=== PATIENT | female | born 1945 | race American Indian/Alaskan Native ===

== ENCOUNTER → 2017-08-11 08:08 | Outpatient (CLI) | payer OTHER ==
[~2017-08-11 08:08] MED LIST: CELEBREX50 MG PO; FLONASE16 GM NS; NABUMETONE750 MG PO; SIMVASTATIN20 MG PO; ZYRTEC10 MG PO
== END | disposition home or self-care (01) ==
LOC: LAB 08:08
DX: E27.1 Primary adrenocortical insufficiency (principal); E27.49 Other adrenocortical insufficiency; I10 Essential (primary) hypertension; E03.8 Other specified hypothyroidism; E78.1 Pure hyperglyceridemia; K59.09 Other constipation; Z12.11 Encounter for screening for malignant neoplasm of colon; Z72.9 Problem related to lifestyle, unspecified; D35.2 Benign neoplasm of pituitary gland

== ENCOUNTER 2017-08-11 08:10 | Outpatient (CLI) | payer OTHER | END 2017-08-11 08:19 | disposition home or self-care (01) | LOC: MAMO-SONO 08:10 | DX: Z12.31 Encounter for screening mammogram for malignant neoplasm of breast (principal); Z87.898 Personal history of other specified conditions; Z12.39 Encounter for other screening for malignant neoplasm of breast ==

== ENCOUNTER 2018-08-28 07:55 | Outpatient (CLI) | payer OTHER | END 2018-08-28 08:11 | disposition home or self-care (01) | LOC: LAB 07:55 | DX: E78.1 Pure hyperglyceridemia (principal); E78.00 Pure hypercholesterolemia, unspecified ==

== ENCOUNTER 2018-10-13 11:10 | Inpatient (IN) | payer OTHER ==
[~2018-10-13] VITALS: Ht 152.4 cm; Wt 5.0 kg
--- NOTE | 2018-10-13 11:44 | NUR ---
PTE REFIERE DDIARREAS Y DOLOR ABDOMINAL SE JEANETTE S/V YS EUBIAC EN AREA DE OBSERVACION
--- NOTE | 2018-10-13 13:01 | NUR ---
PACIENTE ALERTA Y ORIENTADA EVALUADA POR EL SE ORIENTA A PACIENTE SOBRE TRATAMIENTO MEDICO SE EXTRAEN MUESTRAS DESANGRE Y SE ADMINSITRAN MEDICAMENTOS MARTIN ORDEN MEDICA BAJO MEDIDAS ASEPTICAS
--- NOTE | 2018-10-13 15:12 | NUR ---
SE RECIBE PTE EN AMALIA CON BARANDAS ELEVADAS, AREA DE VENOPUNCION SE ENCUENTRA PATENTE ISRRAEL DE EDEMA Y ENROJECIMIENTO CON IV FLUID PATENTE. PTE PEND A CONSULTA DRA. REHMAN.
[2018-10-15] MEDS ORDERED: B-COMPLEX PLUS1 EACH PO (10:37)
[2018-10-15] MEDS ORDERED: AMLODIPINE BESYL5 MG PO (10:37)
[2018-10-15] MEDS ORDERED: VITAMIN D35000 UNIT PO (10:38)
[2018-10-15] MEDS ORDERED: LOSARTAN-HCTZ1 EAC2 PO (10:38)
[2018-10-18] MEDS ORDERED: IPRATROPIU0.2 MG/1 M IH (14:49)
[2018-10-18] MEDS ORDERED: HYDROCODONE-CH115 ML PO (14:50)
[2018-10-18] MEDS ORDERED: XOPENEX0.63 MG/3 IH (14:50)
[2018-10-18] MEDS ORDERED: FAMOTIDINE20 MG PO (14:51)
[2018-10-18] MEDS ORDERED: MUCINEX600 MG PO (14:51)
[2018-10-18] MEDS ORDERED: MULTIVITAMINS1 EAC1 PO (14:52)
[2018-10-18] MEDS ORDERED: Intestinex CAP PO (14:52)
[2018-10-18] MEDS ORDERED: PREDNISONE10 MG PO (14:52)
== END 2018-10-18 17:41 | disposition home or self-care (01) | DRG 194 ==
LOC: ER 11:10 → SURH 17:58 → MEDJ 10-16 15:26
PROVIDERS: ADMIT Internal Medicine Cardiovascular Disease
PROC: 8E0ZXY6 Isolation (ICD-10-PCS; principal; 2018-10-13)
PROC: 4A033R1 Measurement of Arterial Saturation, Peripheral, Percutaneous Approach (ICD-10-PCS; 2018-10-13)
PROC: 3E0F7GC Introduction of Other Therapeutic Substance into Respiratory Tract, Via Natural or Artificial Opening (ICD-10-PCS; 2018-10-13)
PROC: BB24ZZZ Computerized Tomography (CT Scan) of Bilateral Lungs (ICD-10-PCS; 2018-10-13)
PROC: B246ZZZ Ultrasonography of Right and Left Heart (ICD-10-PCS; 2018-10-14)
DX: J16.8 Pneumonia due to other specified infectious organisms (principal); J90 Pleural effusion, not elsewhere classified; J98.11 Atelectasis; K52.89 Other specified noninfective gastroenteritis and colitis

== ENCOUNTER 2018-11-27 07:43 | Outpatient (CLI) | payer OTHER ==
[~2018-11-27 07:43] MED LIST changes: +AMLODIPINE BESYL5 MG PO; +B-COMPLEX PLUS1 EACH PO; +FAMOTIDINE20 MG PO; +HYDROCODONE-CH115 ML PO; +IPRATROPIU0.2 MG/1 M IH; +Intestinex CAP PO; +LOSARTAN-HCTZ1 EAC2 PO; +MUCINEX600 MG PO; +MULTIVITAMINS1 EAC1 PO; +PREDNISONE10 MG PO; +VITAMIN D35000 UNIT PO; +XOPENEX0.63 MG/3 IH
== END 2018-11-27 11:30 | disposition home or self-care (01) ==
LOC: LAB 07:43
DX: N39.0 Urinary tract infection, site not specified (principal); Z11.9 Encounter for screening for infectious and parasitic diseases, unspecified; E78.00 Pure hypercholesterolemia, unspecified; K85.00 Idiopathic acute pancreatitis without necrosis or infection; E03.8 Other specified hypothyroidism; R19.8 Other specified symptoms and signs involving the digestive system and abdomen; I10 Essential (primary) hypertension

== ENCOUNTER 2019-01-09 08:44 | Outpatient (CLI) | payer OTHER ==
[~2019-01-09] VITALS: Ht 165.1 cm; Wt 70.8 kg
== END 2019-01-09 09:00 | disposition home or self-care (01) ==
LOC: OFIC 805 08:44
DX: J31.0 Chronic rhinitis (principal); H90.3 Sensorineural hearing loss, bilateral; R49.9 Unspecified voice and resonance disorder; J04.0 Acute laryngitis; R05 Cough

== ENCOUNTER 2019-02-01 08:53 | Outpatient (CLI) | payer OTHER | END 2019-02-01 08:57 | disposition home or self-care (01) | LOC: SONOGRAMA 08:53 | DX: R10.84 Generalized abdominal pain (principal) ==

== ENCOUNTER 2019-04-12 07:51 | Outpatient (CLI) | payer OTHER | END 2019-04-12 07:52 | disposition home or self-care (01) | LOC: RAD 07:51 | DX: J98.11 Atelectasis (principal) ==

== ENCOUNTER → 2019-05-29 08:02 | Outpatient (CLI) | payer OTHER | END | disposition home or self-care (01) | LOC: LAB 08:02 | DX: E78.1 Pure hyperglyceridemia (principal); Z11.8 Encounter for screening for other infectious and parasitic diseases; E78.00 Pure hypercholesterolemia, unspecified ==

== ENCOUNTER 2019-07-31 08:02 | Outpatient (CLI) | payer OTHER | END 2019-07-31 08:13 | disposition home or self-care (01) | LOC: LAB 08:02 | DX: D68.8 Other specified coagulation defects (principal); H25.011 Cortical age-related cataract, right eye; Z98.41 Cataract extraction status, right eye ==

== ENCOUNTER → 2019-09-18 07:17 | Outpatient (CLI) | payer OTHER | END | disposition home or self-care (01) | LOC: LAB 07:17 | DX: E78.1 Pure hyperglyceridemia (principal); E11.9 Type 2 diabetes mellitus without complications; E03.8 Other specified hypothyroidism; I10 Essential (primary) hypertension ==

== ENCOUNTER 2019-09-26 10:06 | Outpatient (CLI) | payer OTHER | END 2019-09-26 11:20 | disposition home or self-care (01) | LOC: NUCLEAR 10:06 | DX: M85.89 Other specified disorders of bone density and structure, multiple sites (principal) ==

== ENCOUNTER → 2020-06-03 08:14 | Outpatient (CLI) | payer OTHER | END | disposition home or self-care (01) | LOC: LAB 08:14 | PROVIDERS: ATTEND Internal Medicine Cardiovascular Disease | DX: Z20.828 Contact with and (suspected) exposure to other viral communicable diseases (principal); I10 Essential (primary) hypertension; J18.0 Bronchopneumonia, unspecified organism; R07.89 Other chest pain ==

== ENCOUNTER 2020-06-03 09:24 | Outpatient (CLI) | payer OTHER | END 2020-06-03 10:33 | disposition home or self-care (01) | LOC: MAMO-SONO 09:24 | PROVIDERS: ATTEND Internal Medicine Cardiovascular Disease | DX: Z12.31 Encounter for screening mammogram for malignant neoplasm of breast (principal); N60.02 Solitary cyst of left breast ==

== ENCOUNTER 2020-07-01 07:34 | Outpatient (CLI) | payer OTHER | END 2020-07-01 07:42 | disposition home or self-care (01) | LOC: LAB 07:34 | PROVIDERS: ATTEND Internal Medicine Cardiovascular Disease | DX: Z20.828 Contact with and (suspected) exposure to other viral communicable diseases (principal); B96.0 Mycoplasma pneumoniae [M. pneumoniae] as the cause of diseases classified elsewhere ==

== ENCOUNTER 2020-09-14 07:33 | Outpatient (CLI) | payer OTHER | END 2020-09-14 07:47 | disposition home or self-care (01) | LOC: LAB 07:33 | PROVIDERS: ATTEND Internal Medicine Cardiovascular Disease | DX: I10 Essential (primary) hypertension (principal); E11.9 Type 2 diabetes mellitus without complications; E78.00 Pure hypercholesterolemia, unspecified ==

== ENCOUNTER → 2020-12-03 07:54 | Outpatient (CLI) | payer OTHER | END | disposition home or self-care (01) | LOC: LAB 07:54 | PROVIDERS: ATTEND Internal Medicine Cardiovascular Disease | DX: R94.5 Abnormal results of liver function studies (principal); E78.2 Mixed hyperlipidemia ==

== ENCOUNTER → 2021-03-30 08:57 | Outpatient (CLI) | payer OTHER | END | disposition home or self-care (01) | LOC: LAB 08:57 | PROVIDERS: ATTEND Internal Medicine Cardiovascular Disease | DX: I10 Essential (primary) hypertension (principal); E03.8 Other specified hypothyroidism; E11.9 Type 2 diabetes mellitus without complications; E78.00 Pure hypercholesterolemia, unspecified; E78.1 Pure hyperglyceridemia ==

== ENCOUNTER 2021-11-19 08:08 | Outpatient (CLI) | payer OTHER | END 2021-11-19 08:09 | disposition home or self-care (01) | LOC: LAB 08:08 | PROVIDERS: ATTEND Internal Medicine Cardiovascular Disease | DX: E03.8 Other specified hypothyroidism (principal); I10 Essential (primary) hypertension; E78.9 Disorder of lipoprotein metabolism, unspecified; E78.1 Pure hyperglyceridemia; E71.19 Other disorders of branched-chain amino-acid metabolism ==

== ENCOUNTER 2021-12-16 08:08 | Emergency (ER) | payer OTHER ==
[~2021-12-16] VITALS: Ht 157.5 cm; Wt 61.2 kg
== END 2021-12-16 10:51 | disposition home or self-care (01) ==
LOC: ER 08:08
DX: B34.9 Viral infection, unspecified (principal); Z91.013 Allergy to seafood

== ENCOUNTER 2022-11-14 07:47 | Outpatient (CLI) | payer OTHER ==
[~2022-11-14 07:47] MED LIST changes: +NORFLEX100MG PO
== END 2022-11-14 08:05 | disposition home or self-care (01) ==
LOC: LAB 07:47
PROVIDERS: ATTEND Internal Medicine Cardiovascular Disease
DX: D64.9 Anemia, unspecified (principal); R10.9 Unspecified abdominal pain; E03.9 Hypothyroidism, unspecified; E78.5 Hyperlipidemia, unspecified; E11.9 Type 2 diabetes mellitus without complications; I10 Essential (primary) hypertension; N39.0 Urinary tract infection, site not specified; R07.89 Other chest pain; I20.9 Angina pectoris, unspecified; Z12.11 Encounter for screening for malignant neoplasm of colon; Z13.0 Encounter for screening for diseases of the blood and blood-forming organs and certain disorders involving the immune mechanism; C18.9 Malignant neoplasm of colon, unspecified; R11.10 Vomiting, unspecified

== ENCOUNTER 2023-05-23 07:49 | Outpatient (CLI) | payer OTHER | END 2023-05-23 07:50 | disposition home or self-care (01) | LOC: LAB 07:49 | PROVIDERS: ATTEND Internal Medicine Cardiovascular Disease | DX: Z80.0 Family history of malignant neoplasm of digestive organs (principal); Z91.013 Allergy to seafood; Z91.018 Allergy to other foods ==

== ENCOUNTER 2023-06-21 09:11 | Outpatient (CLI) | payer OTHER | END 2023-06-21 09:25 | disposition home or self-care (01) | LOC: MAMO-SONO 09:11 | PROVIDERS: ATTEND Internal Medicine Cardiovascular Disease | DX: Z12.31 Encounter for screening mammogram for malignant neoplasm of breast (principal); C50.919 Malignant neoplasm of unspecified site of unspecified female breast; M19.079 Primary osteoarthritis, unspecified ankle and foot ==

== ENCOUNTER 2023-08-23 11:28 | Emergency (ER) | payer OTHER ==
[~2023-08-23] VITALS: Ht 162.6 cm; Wt 68.0 kg
[2023-08-23] MEDS ORDERED: ROSUVASTATIN CA10 MG PO (12:05)
[2023-08-23] MEDS ORDERED: ELIQUIS5 MG PO (12:05)
== END 2023-08-23 16:07 | disposition home or self-care (01) ==
LOC: ER 11:28
DX: S92.412A Displaced fracture of proximal phalanx of left great toe, initial encounter for closed fracture (principal); Z91.013 Allergy to seafood; W22.8XXA Striking against or struck by other objects, initial encounter; Y93.89 Activity, other specified; Y92.018 Other place in single-family (private) house as the place of occurrence of the external cause

== ENCOUNTER → 2023-09-14 07:45 | Outpatient (CLI) | payer OTHER ==
[~2023-09-14 07:45] MED LIST changes: +ELIQUIS5 MG PO; +ROSUVASTATIN CA10 MG PO
[2023-09-14 09:14] LABS: HEMATOCRIT 37.6 % (36.0-45.00); HEMOGLOBIN 12.4 g/dL (12.0-15.00); MEAN CELL VOLUME 82.2 fL (80.00-100.00); MEAN CORPUSCULAR HGB CONC 32.8 g/dl (32.0-36.0); PLATELET COUNT 248 K/uL (150-450); RED BLOOD COUNT 4.58 M/uL (4.00-6.00)
[2023-09-14 09:17] LABS: PH,URINE 5.5 (5.0-8.0); URINE APPEARANCE Clear; URINE BILIRRUBIN Negative (NEGATIVE); URINE BLOOD Small; URINE COLOR Yellow; URINE GLUCOSE Negative (NEGATIVE); URINE LEUKOCYTE Negative; URINE NITRATE Negative; URINE PROTEIN Negative (NEGATIVE); URINE UROBILINOGEN 0.2 E.U./dl
[2023-09-14 09:21] LABS: URINE BACTERIA 16.3 uL (0.0-1933); URINE EPITHELIAL CELLS 2.1 uL (0.0-38.8); URINE RBC 9.1 uL (0.0-20.8)
[2023-09-14 09:39] LABS: ALBUMIN 3.6 gm/dL (3.4-5.0); BILIRUBIN TOTAL 0.43 mg/dL (0.3-1.2); CALCIUM 9.9 mg/dL (8.5-10.1); CHOL HDL RATIO 4.8 (0-5.0); CREATININE SERUM 0.87 mg/dL (0.55-1.02); GFR 62.81; POTASSIUM 4.39 mEq/L (3.5-5.1); TOTAL PROTEIN 6.6 gm/dL (6.4-8.2); TSH 1.43 uIU/mL (0.358-3.74)
== END | disposition home or self-care (01) ==
LOC: LAB 07:45
PROVIDERS: ATTEND Internal Medicine Cardiovascular Disease
DX: I10 Essential (primary) hypertension (principal); E78.1 Pure hyperglyceridemia; E55.9 Vitamin D deficiency, unspecified; N39.0 Urinary tract infection, site not specified; Z12.11 Encounter for screening for malignant neoplasm of colon; E03.8 Other specified hypothyroidism; E11.9 Type 2 diabetes mellitus without complications

== ENCOUNTER 2023-09-21 07:32 | Emergency (ER) | payer OTHER ==
[~2023-09-21] VITALS: Ht 162.6 cm; Wt 69.9 kg
[2023-09-21] MEDS ORDERED: LOPRESSOR25 MG PO (07:43)
[2023-09-21] MEDS ORDERED: DEXAMETHASONE SODIUM PHOSPHATE 4 MG/ML VIAL IM STA (08:34)
== END 2023-09-21 10:50 | disposition home or self-care (01) ==
LOC: ER 07:32
DX: M54.2 Cervicalgia (principal); V43.52XA Car driver injured in collision with other type car in traffic accident, initial encounter; Y93.89 Activity, other specified; Y92.413 State road as the place of occurrence of the external cause; Z91.013 Allergy to seafood; E78.00 Pure hypercholesterolemia, unspecified; I10 Essential (primary) hypertension; R73.9 Hyperglycemia, unspecified
CPT/HCPCS: 70450; 72125; 96372; 99284; J1100

== ENCOUNTER 2024-01-19 08:30 | Outpatient (CLI) | payer OTHER ==
[~2024-01-19 08:30] MED LIST changes: +LOPRESSOR25 MG PO
[2024-01-19 09:44] LABS: PH,URINE 5.5 (5.0-8.0); URINE APPEARANCE Clear; URINE BILIRRUBIN Negative (NEGATIVE); URINE BLOOD Small; URINE COLOR Yellow; URINE GLUCOSE Negative (NEGATIVE); URINE LEUKOCYTE Negative; URINE NITRATE Negative; URINE PROTEIN Negative (NEGATIVE); URINE UROBILINOGEN 0.2 E.U./dl
[2024-01-19 09:45] LABS: HEMATOCRIT 36.9 % (36.0-45.00); HEMOGLOBIN 12.3 g/dL (12.0-15.00); MEAN CELL VOLUME 81.4 fL (80.00-100.00); MEAN CORPUSCULAR HEMOGLOBIN 27.2 pg (27.00-32.0); MEAN CORPUSCULAR HGB CONC 33.4 g/dl (32.0-36.0); PLATELET COUNT 241 K/uL (150-450); RED BLOOD COUNT 4.53 M/uL (4.00-6.00); RED CELL DISTRIBUTION WIDTH 14.2 % (11.5-14.5)
[2024-01-19 09:48] LABS: URINE BACTERIA 6.2 uL (0.0-1933); URINE EPITHELIAL CELLS 1.8 uL (0.0-38.8); URINE RBC 25.8 uL (0.0-20.8)
[2024-01-19 09:53] LABS: URINE WBC 1.6 uL (0.0-23.2)
[2024-01-19 10:21] LABS: ALBUMIN 3.4 gm/dL (3.4-5.0); BILIRUBIN TOTAL 0.61 mg/dL (0.3-1.2); CALCIUM 9.4 mg/dL (8.5-10.1); CHOL HDL RATIO 4.6 (0-5.0); CREATININE SERUM 0.92 mg/dL (0.55-1.02); GFR 58.89; GLOBULINA 3.1 G/DL (2.4-3.5); POTASSIUM 4.54 mEq/L (3.5-5.1); TOTAL PROTEIN 6.5 gm/dL (6.4-8.2)
== END 2024-01-19 08:31 | disposition home or self-care (01) ==
LOC: LAB 08:30
PROVIDERS: ATTEND Internal Medicine Cardiovascular Disease
DX: Z11.9 Encounter for screening for infectious and parasitic diseases, unspecified (principal); Z78.1 Physical restraint status

== ENCOUNTER 2024-03-19 08:14 | Emergency (ER) | payer OTHER ==
[~2024-03-19] VITALS: Ht 162.6 cm; Wt 68.0 kg
[2024-03-19] MEDS ORDERED: AVAPRO300 MG (08:20)
[2024-03-19] MEDS ORDERED: ZETIA10 MG (08:20)
[2024-03-19 09:08] LABS: HEMATOCRIT 37.1 % (36.0-45.00); HEMOGLOBIN 12.1 g/dL (12.0-15.00); MEAN CELL VOLUME 83.7 fL (80.00-100.00); MEAN CORPUSCULAR HEMOGLOBIN 27.3 pg (27.00-32.0); MEAN CORPUSCULAR HGB CONC 32.6 g/dl (32.0-36.0); PLATELET COUNT 232 K/uL (150-450); RED BLOOD COUNT 4.44 M/uL (4.00-6.00); RED CELL DISTRIBUTION WIDTH 13.9 % (11.5-14.5)
[2024-03-19 09:36] LABS: CALCIUM 9.1 mg/dL (8.5-10.1); CREATININE SERUM 0.96 mg/dL (0.55-1.02); GFR 56.06; POTASSIUM 3.96 mEq/L (3.5-5.1)
== END 2024-03-19 12:40 | disposition home or self-care (01) ==
LOC: ER 08:16
PROVIDERS: General Practice
DX: S00.83XA Contusion of other part of head, initial encounter (principal); X58.XXXA Exposure to other specified factors, initial encounter; Y93.89 Activity, other specified; Y92.89 Other specified places as the place of occurrence of the external cause; Y99.8 Other external cause status; I10 Essential (primary) hypertension; Z91.013 Allergy to seafood; Z91.018 Allergy to other foods

== ENCOUNTER 2024-05-24 14:00 | Emergency (ER) | payer OTHER ==
[~2024-05-24] VITALS: Ht 162.6 cm; Wt 69.9 kg
[~2024-05-24 14:00] MED LIST changes: +AVAPRO300 MG; +ZETIA10 MG
[2024-05-24 16:17] LABS: HEMATOCRIT 38.2 % (36.0-45.00); HEMOGLOBIN 12.3 g/dL (12.0-15.00); MEAN CORPUSCULAR HEMOGLOBIN 26.6 pg (27.00-32.0); MEAN CORPUSCULAR HGB CONC 32.1 g/dl (32.0-36.0); PLATELET COUNT 268 K/uL (150-450); RED CELL DISTRIBUTION WIDTH 13.8 % (11.5-14.5)
[2024-05-24 16:38] LABS: URINE APPEARANCE Clear; URINE BILIRRUBIN Negative (NEGATIVE); URINE BLOOD Small; URINE COLOR Yellow; URINE GLUCOSE Negative (NEGATIVE); URINE KETONE Trace (NEGATIVE); URINE LEUKOCYTE Negative; URINE NITRATE Negative; URINE PROTEIN Negative (NEGATIVE); URINE UROBILINOGEN 0.2 E.U./dl
[2024-05-24 16:40] LABS: URINE BACTERIA 22.6 uL (0.0-1933); URINE RBC 22.1 uL (0.0-20.8)
[2024-05-24 16:41] LABS: CALCIUM 9.1 mg/dL (8.5-10.1); CREATININE SERUM 0.91 mg/dL (0.55-1.02); GFR 59.63; POTASSIUM 4.34 mEq/L (3.5-5.1)
[2024-05-24 16:46] LABS: URINE EPITHELIAL CELLS 0.6 uL (0.0-38.8); URINE WBC 0.6 uL (0.0-23.2)
[2024-05-24] MEDS ORDERED: FAMOTIDINE/PF 20 MG/2 ML VIAL IV ONE (20:00)
[2024-05-24] MEDS ORDERED: MEPERIDINE HCL/PF 50 MG/ML VIAL IM ONE (20:00)
[2024-05-24] MEDS ORDERED: ONDANSETRON HCL 2 MG/ML VIAL IV ONE (20:00)
[2024-05-24] MEDS ORDERED: SODIUM CHLORIDE 0.45 % 1,000 ML IV SCH (20:00)
[2024-05-24] MEDS ORDERED: METRONIDAZOLE/SODIUM CHLORIDE 500 MG/100 ML PIGGYBACK IV ONE (21:15)
[2024-05-24] MEDS ORDERED: CIPROFLOXACIN IN 5 % DEXTROSE 400 MG/200 ML PIGGYBAG IV ONE (21:15)
[2024-05-25] MEDS ORDERED: APIXABAN 5 MG TABLET PO ONE (07:00)
[2024-05-25] MEDS ORDERED: IRBESARTAN 300 MG TABLET PO ONE (07:00)
== END 2024-05-25 12:04 | disposition left against medical advice (07) ==
LOC: ER 14:02
PROVIDERS: Emergency Medicine
DX: K59.09 Other constipation (principal); R10.9 Unspecified abdominal pain; Z91.013 Allergy to seafood
CPT/HCPCS: 36415; 74177; 96365; 96372; 99284; J0744; J2405; J3490 ×3; Q9965

== ENCOUNTER 2024-05-25 14:43 | Inpatient (IN) | payer OTHER ==
[~2024-05-25] VITALS: Ht 162.6 cm; Wt 69.9 kg
--- NOTE | 2024-05-25 15:16 | NUR ---
SE RECIBE PTE ALERTA Y ORIENTADA X3. REFIERE DOLOR ABDOMINAL DESDE EL JUEVES PASADO. PTE VIENE POR ORDEN DE BUCKY BENYN REHMAN PARA ADMISION POR DIVERTICULOS. SE MIDE SV Y SE UBICA
[2024-05-25] MEDS ORDERED: 0.9 % SODIUM CHLORIDE 500 ML IV ONE (16:45)
--- NOTE | 2024-05-25 17:26 | NUR ---
SE REALIZA LABORATORIOS MARTIN ORDEN MEDICA BAJO MEDIDAS ASEPTICAS. SE ORIENTA A PTE QUIEN REFIERE ENTENDER Y ACEPTAR
[2024-05-25] MEDS ORDERED: METRONIDAZOLE/SODIUM CHLORIDE 100 ML IV SCH (17:27)
[2024-05-25] MEDS ORDERED: CIPROFLOXACIN IN 5 % DEXTROSE 200 ML IV SCH (17:27)
[2024-05-25] MEDS ORDERED: SODIUM CHLORIDE 0.45 % 1,000 ML IV SCH (17:30)
[2024-05-25 17:41] LABS: HEMATOCRIT 37.6 % (36.0-45.00); HEMOGLOBIN 12.1 g/dL (12.0-15.00); MEAN CELL VOLUME 83.1 fL (80.00-100.00); MEAN CORPUSCULAR HEMOGLOBIN 26.8 pg (27.00-32.0); MEAN CORPUSCULAR HGB CONC 32.2 g/dl (32.0-36.0); PLATELET COUNT 269 K/uL (150-450); RED BLOOD COUNT 4.52 M/uL (4.00-6.00); RED CELL DISTRIBUTION WIDTH 13.9 % (11.5-14.5)
[2024-05-25 17:54] LABS: INR 1.05; PARTIAL THROMBOPLASTIN TIME 31.9 SECONDS (22.0-34.0); PROTHROMBIN TIME 11.4 SECONDS (9.0-11.5)
[2024-05-25 18:14] LABS: ALBUMIN 3.4 gm/dL (3.4-5.0); BILIRUBIN TOTAL 1.13 mg/dL (0.3-1.2); CALCIUM 9.1 mg/dL (8.5-10.1); GFR 53.48; TOTAL PROTEIN 6.4 gm/dL (6.4-8.2)
[2024-05-25 18:36] VITALS: BP 159/71; O2SAT 96
[2024-05-25 19:41] LABS: URINE APPEARANCE Clear; URINE BILIRRUBIN Negative (NEGATIVE); URINE BLOOD Small; URINE COLOR Yellow; URINE GLUCOSE Negative (NEGATIVE); URINE KETONE 15 (NEGATIVE); URINE LEUKOCYTE Negative; URINE NITRATE Negative; URINE PROTEIN Negative (NEGATIVE); URINE UROBILINOGEN 0.2 E.U./dl
[2024-05-25 19:44] LABS: URINE RBC 11.8 uL (0.0-20.8)
[2024-05-25 20:05] LABS: URINE BACTERIA 1.2 uL (0.0-1933); URINE WBC 0.7 uL (0.0-23.2)
[2024-05-25 22:16] VITALS: BP 183/87
[2024-05-26 01:01] VITALS: BP 160/72; O2SAT 98
[2024-05-26 08:20] VITALS: BP 165/72; O2SAT 99
[2024-05-26] MEDS ORDERED: IRBESARTAN 300 MG TABLET PO SCH (17:31)
[2024-05-26] MEDS ORDERED: APIXABAN 5 MG TABLET PO SCH (17:32)
[2024-05-26] MEDS ORDERED: METOPROLOL SUCCINATE 25 MG TAB.SR.24H PO SCH (17:32)
[2024-05-26 19:13] VITALS: BP 160/100
[2024-05-26 22:36] VITALS: BP 160/80
[2024-05-26] MEDS ORDERED: ONDANSETRON HCL 2 MG/ML VIAL IV STA (22:37)
[2024-05-26] MEDS ORDERED: PANTOPRAZOLE SODIUM 40 MG/VIAL VIAL IV SCH (22:38)
[2024-05-26] MEDS ORDERED: FAMOTIDINE/PF 20 MG/2 ML VIAL IV SCH (22:39)
[2024-05-26] MEDS ORDERED: ONDANSETRON HCL 2 MG/ML VIAL IV PRN (22:45)
[2024-05-27 01:23] VITALS: BP 160/80; O2SAT 97
[2024-05-27 06:52] LABS: BILIRUBIN TOTAL 0.64 mg/dL (0.3-1.2); CALCIUM 8.6 mg/dL (8.5-10.1); CREATININE SERUM 0.77 mg/dL (0.55-1.02); GFR 72.31; POTASSIUM 4.23 mEq/L (3.5-5.1)
[2024-05-27 10:34] VITALS: BP 148/74; O2SAT 96
[2024-05-27 16:56] VITALS: BP 164/74; O2SAT 98
[2024-05-27] MEDS ORDERED: MAGNESIUM HYDROXIDE 30 ML BLIST.PACK PO NR (17:15)
[2024-05-27] MEDS ORDERED: LACTULOSE 20 G/30 ML BLIST.PACK PO NR (17:15)
[2024-05-27] MEDS ORDERED: MINERAL OIL 30 ML BLIST.PACK PO NR (17:30)
[2024-05-28 01:25] VITALS: BP 167/85; O2SAT 95
[2024-05-28] MEDS ORDERED: POLYETHYLENE GLYCOL 3350 17 GM BLIST.PACK PO SCH (09:00)
[2024-05-28 09:12] VITALS: BP 166/82; O2SAT 95
[2024-05-28] MEDS ORDERED: GUAIFENESIN 200 MG/10 ML BLIST.PACK PO SCH (17:03)
[2024-05-28 17:24] VITALS: BP 157/71; O2SAT 94
[2024-05-28] MEDS ORDERED: MORPHINE SULFATE 4 MG/ML CARTRIDGE IV PRN (17:30)
[2024-05-28 22:47] VITALS: BP 171/66; O2SAT 97
[2024-05-28 23:52] LABS: HEMATOCRIT 36.9 % (36.0-45.00); HEMOGLOBIN 12.5 g/dL (12.0-15.00); MEAN CELL VOLUME 80.7 fL (80.00-100.00); MEAN CORPUSCULAR HEMOGLOBIN 27.2 pg (27.00-32.0); MEAN CORPUSCULAR HGB CONC 33.8 g/dl (32.0-36.0); PLATELET COUNT 233 K/uL (150-450); RED BLOOD COUNT 4.57 M/uL (4.00-6.00); RED CELL DISTRIBUTION WIDTH 13.6 % (11.5-14.5)
[2024-05-29 00:15] LABS: CALCIUM 8.4 mg/dL (8.5-10.1); CREATININE SERUM 1.05 mg/dL (0.55-1.02); GFR 50.56; POTASSIUM 3.54 mEq/L (3.5-5.1)
[2024-05-29] MEDS ORDERED: OSELTAMIVIR PHOSPHATE 75 MG CAPSULE PO SCH (00:30)
[2024-05-29 01:38] VITALS: BP 169/79; O2SAT 95
[2024-05-29] MEDS ORDERED: HYDROCORTISONE 2.5% 30 GM TUBE RECTAL SCH (09:00)
[2024-05-29 09:35] VITALS: BP 127/76; O2SAT 96
[2024-05-29 18:48] VITALS: BP 160/72; O2SAT 98
[2024-05-30 00:31] VITALS: BP 172/74; O2SAT 98
[2024-05-30 09:59] VITALS: BP 155/70; O2SAT 98
[2024-05-30] MEDS ORDERED: CIPRO500 MG PO (13:26)
[2024-05-30] MEDS ORDERED: TUSSIN MUC100 MG/5 M PO (13:26)
[2024-05-30] MEDS ORDERED: HYDROCORTISO453.6 G1 RECTAL (13:26)
[2024-05-30] MEDS ORDERED: PEPCID AC20 MG PO (13:26)
[2024-05-30] MEDS ORDERED: LEVSIN/SL0.125 MG SL (13:26)
[2024-05-30] MEDS ORDERED: OSEL75CA PO (13:26)
[2024-05-30] MEDS ORDERED: POLY119PG PO (13:26)
== END 2024-05-30 14:46 | disposition home or self-care (01) | DRG 392 ==
LOC: ER 14:45 → MEDI 17:58 → MEDJ 05-29 11:03
PROVIDERS: Nurse Practitioner Family; ADMIT Internal Medicine Cardiovascular Disease; ATTEND Internal Medicine Cardiovascular Disease
DX: K57.92 Diverticulitis of intestine, part unspecified, without perforation or abscess without bleeding (principal); K59.09 Other constipation; I10 Essential (primary) hypertension; I48.91 Unspecified atrial fibrillation

== ENCOUNTER 2024-07-01 07:37 | Outpatient (CLI) | payer OTHER ==
[~2024-07-01 07:37] MED LIST changes: +CIPRO500 MG PO; +HYDROCORTISO453.6 G1 RECTAL; +LEVSIN/SL0.125 MG SL; +OSEL75CA PO; +PEPCID AC20 MG PO; +POLY119PG PO; +TUSSIN MUC100 MG/5 M PO
[2024-07-01 08:41] LABS: PH,URINE 5.5 (5.0-8.0); URINE APPEARANCE Clear; URINE BILIRRUBIN Negative (NEGATIVE); URINE BLOOD Negative; URINE COLOR Yellow; URINE GLUCOSE Negative (NEGATIVE); URINE KETONE Negative (NEGATIVE); URINE LEUKOCYTE Negative; URINE NITRATE Negative; URINE PROTEIN Negative (NEGATIVE); URINE UROBILINOGEN 0.2 E.U./dl
[2024-07-01 08:54] LABS: HEMATOCRIT 37.2 % (36.0-45.00); HEMOGLOBIN 12.3 g/dL (12.0-15.00); MEAN CELL VOLUME 80.9 fL (80.00-100.00); MEAN CORPUSCULAR HEMOGLOBIN 26.7 pg (27.00-32.0); PLATELET COUNT 229 K/uL (150-450); RED CELL DISTRIBUTION WIDTH 14.6 % (11.5-14.5)
[2024-07-01 08:55] LABS: URINE EPITHELIAL CELLS 4.1 uL (0.0-38.8); URINE RBC 6.4 uL (0.0-20.8); URINE WBC 2.3 uL (0.0-23.2)
[2024-07-01 08:59] LABS: URINE CAST 0.29 uL (0.0-1.40)
[2024-07-01 09:24] LABS: ALBUMIN 3.7 gm/dL (3.4-5.0); ALKALINE PHOSPHATASE 52 U/L (50-136); ALT/SGPT 20 U/L (12-78); ANION GAP 7 (10.0-20.0); AST/SGOT 22 U/L (15-37); BILIRUBIN TOTAL 0.63 mg/dL (0.3-1.2); BLOOD UREA NITROGEN 20 mg/dL (7-18); BUN CREA RATIO 23 (7.0-25.0); C-REACTIVE PROTEIN < 0.29 MG/DL (0.00-0.29); CALCIUM 9.3 mg/dL (8.5-10.1); CARBON DIOXIDE 28 mEq/L (21-32); CHLORIDE 111 mmol/L (98-107); CREATININE SERUM 0.88 mg/dL (0.55-1.02); GFR 61.98; GLOBULINA 3.2 G/DL (2.4-3.5); GLUCOSE FASTING 89 mg/dL (65-100); OSMOLALITY SERUM 285 MOSM/KG (275-295); POTASSIUM 4.17 mEq/L (3.5-5.1); SODIUM 142 mmol/L (136-145); TOTAL PROTEIN 6.9 gm/dL (6.4-8.2)
== END 2024-07-01 07:38 | disposition home or self-care (01) ==
LOC: LAB 07:37
PROVIDERS: ATTEND Internal Medicine Cardiovascular Disease
DX: E78.1 Pure hyperglyceridemia (principal); E78.9 Disorder of lipoprotein metabolism, unspecified; I10 Essential (primary) hypertension; E11.9 Type 2 diabetes mellitus without complications; E03.9 Hypothyroidism, unspecified; R79.89 Other specified abnormal findings of blood chemistry

== ENCOUNTER 2024-07-03 09:21 | Outpatient (CLI) | payer OTHER | END 2024-07-03 09:34 | disposition home or self-care (01) | LOC: MRI 09:21 | PROVIDERS: ATTEND Internal Medicine Cardiovascular Disease | DX: S06.0X0A Concussion without loss of consciousness, initial encounter (principal) | CPT/HCPCS: 70553; Q9965 ==

== ENCOUNTER → 2024-09-04 09:28 | Outpatient (CLI) | payer OTHER ==
[2024-09-04 11:13] LABS: ob NEGATIVE (NEGATIVE)
== END | disposition home or self-care (01) ==
LOC: LAB 09:28
PROVIDERS: ATTEND Internal Medicine Gastroenterology
DX: Z86.0100 Personal history of colon polyps, unspecified (principal)

== ENCOUNTER → 2024-09-11 07:40 | Outpatient (CLI) | payer OTHER ==
[2024-09-11 08:15] LABS: PH,URINE 5.5 (5.0-8.0); URINE APPEARANCE Clear; URINE BILIRRUBIN Negative (NEGATIVE); URINE BLOOD Trace; URINE COLOR Yellow; URINE GLUCOSE Negative (NEGATIVE); URINE KETONE Negative (NEGATIVE); URINE LEUKOCYTE Negative; URINE NITRATE Negative; URINE PROTEIN Negative (NEGATIVE); URINE UROBILINOGEN 0.2 E.U./dl
[2024-09-11 08:16] LABS: URINE BACTERIA 19.5 uL (0.0-1933); URINE EPITHELIAL CELLS 1.7 uL (0.0-38.8); URINE RBC 12.6 uL (0.0-20.8); URINE WBC 4.8 uL (0.0-23.2)
[2024-09-11 08:40] LABS: HEMATOCRIT 38.6 % (36.0-45.00); HEMOGLOBIN 12.8 g/dL (12.0-15.00); MEAN CELL VOLUME 80.8 fL (80.00-100.00); MEAN CORPUSCULAR HEMOGLOBIN 26.9 pg (27.00-32.0); MEAN CORPUSCULAR HGB CONC 33.2 g/dl (32.0-36.0); PLATELET COUNT 235 K/uL (150-450); RED BLOOD COUNT 4.78 M/uL (4.00-6.00); RED CELL DISTRIBUTION WIDTH 14.2 % (11.5-14.5)
[2024-09-11 09:22] LABS: ALBUMIN 3.5 gm/dL (3.4-5.0); ALKALINE PHOSPHATASE 56 U/L (50-136); ALT/SGPT 24 U/L (12-78); ANION GAP 6 (10.0-20.0); AST/SGOT 21 U/L (15-37); BILIRUBIN TOTAL 0.49 mg/dL (0.3-1.2); BLOOD UREA NITROGEN 21 mg/dL (7-18); BUN CREA RATIO 25 (7.0-25.0); C-REACTIVE PROTEIN < 0.29 MG/DL (0.00-0.29); CALCIUM 9.1 mg/dL (8.5-10.1); CARBON DIOXIDE 32 mEq/L (21-32); CHLORIDE 109 mmol/L (98-107); CHOLESTEROL 210 mg/dL (0-200); CREATININE SERUM 0.83 mg/dL (0.55-1.02); GFR 66.14; GLOBULINA 3.2 G/DL (2.4-3.5); GLUCOSE FASTING 92 mg/dL (65-100); HDL 53 mg/dl (40-60); LDL 117 mg/dl (0-130); OSMOLALITY SERUM 288 MOSM/KG (275-295); POTASSIUM 4.13 mEq/L (3.5-5.1); SODIUM 143 mmol/L (136-145); TOTAL PROTEIN 6.7 gm/dL (6.4-8.2); TRIGLYCERIDES 198 mg/dL (0-150); VLDL 39 (0-39)
== END | disposition home or self-care (01) ==
LOC: LAB 07:40
PROVIDERS: ATTEND Internal Medicine
DX: D64.9 Anemia, unspecified (principal); N39.0 Urinary tract infection, site not specified; R10.9 Unspecified abdominal pain; E03.9 Hypothyroidism, unspecified; E78.5 Hyperlipidemia, unspecified; R07.9 Chest pain, unspecified; E11.9 Type 2 diabetes mellitus without complications

== ENCOUNTER → 2024-11-19 | Emergency (ER) | payer OTHER ==
[~2024-11-19] VITALS: Ht 162.6 cm; Wt 65.8 kg
[~2024-11-19] MED LIST changes: +0.9 % SODIUM CHLORIDE 1,000 ML IV ONE
[2024-11-19 12:54] LABS: MEAN CELL VOLUME 81.3 fL (80.00-100.00); MEAN CORPUSCULAR HGB CONC 33.2 g/dl (32.0-36.0); PLATELET COUNT 220 K/uL (150-450); RED CELL DISTRIBUTION WIDTH 14.3 % (11.5-14.5)
[2024-11-19 13:10] LABS: INR 1.01
[2024-11-19 13:38] LABS: COVID-19 AG NEGATIVE (NEGATIVE); INFLUENZA A AG NEGATIVE (NEGATIVE)
[2024-11-19 13:50] LABS: ALBUMIN 3.6 gm/dL (3.4-5.0); BILIRUBIN TOTAL 0.62 mg/dL (0.3-1.2); CALCIUM 9.7 mg/dL (8.5-10.1); CREATININE SERUM 0.69 mg/dL (0.55-1.02); GFR 81.86; GLOBULINA 3.3 G/DL (2.4-3.5); POTASSIUM 4.38 mEq/L (3.5-5.1); TOTAL PROTEIN 6.9 gm/dL (6.4-8.2)
[2024-11-19 14:23] LABS: PH,URINE 7.5 (5.0-8.0); URINE APPEARANCE Clear; URINE BILIRRUBIN Negative (NEGATIVE); URINE BLOOD Small; URINE COLOR Yellow; URINE GLUCOSE Negative (NEGATIVE); URINE KETONE Negative (NEGATIVE); URINE LEUKOCYTE Negative; URINE NITRATE Negative; URINE PROTEIN Negative (NEGATIVE); URINE UROBILINOGEN 0.2 E.U./dl
[2024-11-19 14:26] LABS: URINE BACTERIA 20.7 uL (0.0-1933); URINE EPITHELIAL CELLS 2.6 uL (0.0-38.8); URINE RBC 29.1 uL (0.0-20.8)
[2024-11-19 14:40] LABS: URINE WBC 1.1 uL (0.0-23.2)
== END | disposition home or self-care (01) ==
LOC: ER 10:57
PROVIDERS: General Practice
DX: R42 Dizziness and giddiness (principal); I48.91 Unspecified atrial fibrillation; E78.00 Pure hypercholesterolemia, unspecified; M19.90 Unspecified osteoarthritis, unspecified site; I10 Essential (primary) hypertension; Z91.013 Allergy to seafood; Z20.822 Contact with and (suspected) exposure to COVID-19
CPT/HCPCS: 36415; 70450; 93005; 96365; J7030

== ENCOUNTER 2025-01-08 10:42 | Outpatient (CLI) | payer OTHER ==
[~2025-01-08 10:42] MED LIST changes: -0.9 % SODIUM CHLORIDE 1,000 ML IV ONE
== END 2025-01-08 10:44 | disposition home or self-care (01) ==
LOC: RAD 10:42
PROVIDERS: ATTEND Physical Medicine & Rehabilitation
DX: M54.2 Cervicalgia (principal); M54.6 Pain in thoracic spine; M54.50 Low back pain, unspecified

== ENCOUNTER 2025-03-11 07:57 | Outpatient (CLI) | payer OTHER ==
[2025-03-11 09:12] LABS: CHOL HDL RATIO 3.1 (0-5.0); HDL 58.0 mg/dl (40-60); LDL 100.0 mg/dl (0-130); VLDL 24.0 (0-39)
[2025-03-11 10:03] LABS: URINE APPEARANCE Clear; URINE BILIRRUBIN Negative (NEGATIVE); URINE BLOOD Small; URINE COLOR Yellow; URINE GLUCOSE Negative (NEGATIVE); URINE KETONE Negative (NEGATIVE); URINE LEUKOCYTE Negative; URINE NITRATE Negative; URINE PROTEIN Negative (NEGATIVE); URINE UROBILINOGEN 0.2 E.U./dl
[2025-03-11 10:06] LABS: URINE EPITHELIAL CELLS 1.6 uL (0.0-38.8); URINE RBC 18.9 uL (0.0-20.8)
[2025-03-11 10:23] LABS: CREATININE URINE RANDOM 119.0 MG/DL (30-125)
[2025-03-11 10:46] LABS: URINE BACTERIA 1.2 uL (0.0-1933); URINE CAST 0.00 uL (0.0-1.40); URINE WBC 1.0 uL (0.0-23.2)
== END 2025-03-11 08:04 | disposition home or self-care (01) ==
LOC: LAB 07:57
PROVIDERS: ATTEND Internal Medicine Cardiovascular Disease
DX: N39.0 Urinary tract infection, site not specified (principal); I10 Essential (primary) hypertension; E78.1 Pure hyperglyceridemia

== ENCOUNTER 2025-06-19 07:06 | Outpatient (CLI) | payer OTHER | END 2025-06-19 07:09 | disposition home or self-care (01) | LOC: SONOGRAMA 07:06 | PROVIDERS: ATTEND Internal Medicine Cardiovascular Disease | DX: R31.9 Hematuria, unspecified (principal); R10.9 Unspecified abdominal pain; R10.84 Generalized abdominal pain ==

== ENCOUNTER 2025-06-23 07:41 | Outpatient (CLI) | payer OTHER | END 2025-06-23 07:44 | disposition home or self-care (01) | LOC: SONOGRAMA 07:41 | PROVIDERS: ATTEND Internal Medicine Cardiovascular Disease | DX: R31.9 Hematuria, unspecified (principal) ==